=== PATIENT | female | born 1970 | race Asian ===

== ENCOUNTER 2018-04-07 00:50 | Emergency (ER) | payer OTHER ==
[~2018-04-07] VITALS: Ht 160 cm; Wt 58.1 kg
[2018-04-07 00:53] VITALS: Ht 160 cm; Wt 58.1 kg
[2018-04-07 05:49] VITALS: BP 135/85
== END 2018-04-07 05:49 | disposition home or self-care (01) ==
LOC: ED 00:50
DX: J06.9 Acute upper respiratory infection, unspecified (principal); J40 Bronchitis, not specified as acute or chronic
CPT/HCPCS: 87804; J1885; Q0092

== ENCOUNTER 2018-05-14 21:04 | Emergency (ER) | payer OTHER ==
[~2018-05-14] VITALS: Ht 160 cm; Wt 54.4 kg
[2018-05-14 21:33] VITALS: Ht 160 cm; Wt 54.4 kg
[2018-05-14 23:20] VITALS: BP 146/95
== END 2018-05-14 23:20 | disposition home or self-care (01) ==
LOC: ED 21:04
DX: J20.9 Acute bronchitis, unspecified (principal)
CPT/HCPCS: J7512; J7620; Q0092

== ENCOUNTER 2018-09-22 04:54 | Emergency (ER) | payer OTHER ==
[~2018-09-22] VITALS: Ht 160 cm; Wt 57.2 kg
[2018-09-22 05:00] VITALS: Ht 160 cm; Wt 57.2 kg
[2018-09-22 07:03] VITALS: BP 122/77
== END 2018-09-22 07:27 | disposition home or self-care (01) ==
LOC: ED 04:54
DX: J40 Bronchitis, not specified as acute or chronic (principal)
CPT/HCPCS: J7512; J7613; J7644